=== PATIENT | female | born 1975 | race Hispanic/Latino ===

== ENCOUNTER 2016-07-30 11:50 | Observation (INO) | payer OTHER, MEDICAID ==
[2016-07-30] MEDS ORDERED: Sodium Chloride 0.9% 1,000 ML IV STA ×2 (12:48→15:21)
--- NOTE | 2016-07-30 12:55 | ED PDOC ---
HPI: General Adult <William Bradshaw III - Last Filed: 07/30/16 16:48> Chief Complaint (Provider): Rib Injury History Per: Patient History/Exam Limitations: no limitations Onset/Duration Of Symptoms: Days (yesterday at 21:30) Have you had recent travel within the past 21 days to any of the following countries: [place], [place], [place] or [place]?: No Current Symptoms Are (Timing): Still Present Severity: Moderate <Vaughn Kinney - Last Filed: 07/30/16 17:10> Time Seen by Provider: 07/30/16 12:10 Chief Complaint (Nursing): Rib Injury Additional Complaint(s): Marcie Quintero is a 40 year old female, with no pertinent past medical history, who presents to the emergency department for the evaluation of a rib injury, that the patient experienced on 07/29/2016 at 21:30. Patient states she was walking down a staircase before tripping and falling down approximately five steps. She landed on her left side and is currently complaining of abdominal and chest pain that worsens with movement, laughing, and deep inspiration. Further reports striking her head against the ground; however, she did not lose consciousness or sustain any injuries. Associated non-bloody vomiting occurred this morning when abdominal pain was at its worst. Denies a headache, fever, hematuria, diarrhea, melena, hematochezia, or hematemesis. Of note, the patient took Ibuprofen; however, it provided no relief, prompting her visit to the emergency department. Patient also denies any previous abdominal surgeries. PMD: Sam Delatorre (Vaughn Kinney) Past Medical History <William Bradshaw III - Last Filed: 07/30/16 16:48> Reviewed: Historical Data, Nursing Documentation, Vital Signs - Medical History PMH: No Chronic Diseases - Surgical History Surgical History: No Surg Hx - Family History Family History: States: Unknown Family Hx - Social History Current smoker - smoking cessation education provided: Yes (<10 cigarettes daily ) Alcohol: Occasional Drugs: Denies <Vaughn Kinney - Last Filed: 07/30/16 17:10> Vital Signs: Last Vital Signs Temp 97.9 F 07/30/16 17:00 Pulse 86 07/30/16 17:00 Resp 20 07/30/16 17:00 BP 134/95 H 07/30/16 17:00 Pulse Ox 100 07/30/16 17:00 - Home Medications Home Medications: Ambulatory Orders Medication Instructions Recorded No Known Home Med 07/30/16 - Allergies Allergies/Adverse Reactions: Allergies Allergy/AdvReac Type Severity Reaction Status Date / Time No Known Allergies Allergy Verified 12/13/14 12:19 Review of Systems ROS Statement: Except As Marked, All Systems Reviewed And Found Negative Constitutional: Negative for: Fever Cardiovascular: Positive for: Chest Pain Gastrointestinal: Positive for: Vomiting (non-bloody), Abdominal Pain. Negative for: Diarrhea, Melena, Hematochezia, Hematemesis Genitourinary Female: Negative for: Hematuria Musculoskeletal: Positive for: Neck Pain Neurological: Negative for: Headache, Other (loss of consciousness) <Vaughn Kinney - Last Filed: 07/30/16 17:10> Physical Exam - Reviewed Nursing Documentation Reviewed: Yes Vital Signs Reviewed: Yes - Physical Exam Appears: Positive for: Non-toxic, No Acute Distress (moderate painful distress) Head Exam: Positive for: ATRAUMATIC, NORMAL INSPECTION, NORMOCEPHALIC Skin: Positive for: Normal Color, Warm, Dry Eye Exam: Positive for: EOMI, Normal appearance, PERRL ENT: Positive for: Normal ENT Inspection. Negative for: Pharyngeal Erythema, Tonsillar Exudate, Tonsillar Swelling Neck: Positive for: Normal, Painless ROM, Supple Cardiovascular/Chest: Positive for: Regular Rate, Rhythm. Negative for: Chest Non Tender (chest tenderness, left lateral axillary chest wall), Murmur Respiratory: Positive for: Normal Breath Sounds. Negative for: Respiratory Distress Gastrointestinal/Abdominal: Positive for: Normal Exam, Soft, Tenderness ( moderate left lower quadrant tenderness w/ ecchymosis) Back: Positive for: Normal Inspection, L CVA Tenderness. Negative for: R CVA Tenderness, Vertebral Tenderness, Other (cervical tenderness) Extremity: Positive for: Normal ROM. Negative for: Tenderness Neurologic/Psych: Positive for: Alert, Oriented <Vaughn Kinney - Last Filed: 07/30/16 17:10> - Laboratory Results Result Diagrams: 07/30/16 13:14 07/30/16 13:14 - Critical Care Total Time (In Min): 45 <William Bradshaw III - Last Filed: 07/30/16 16:48> - Laboratory Results Result Diagrams: 07/30/16 13:14 07/30/16 13:14 - ECG ECG: Positive for: Interpreted By Me ECG Rhythm: Positive for: Sinus Rhythm. Negative for: ST/T Changes Rate: 98 O2 Sat by Pulse Oximetry: 99 (RA) Pulse Ox Interpretation: Normal - Radiology X-Ray: Interpreted by Me (CXR) X-Ray Interpretation: No Acute Disease <Vaughn Kinney - Last Filed: 07/30/16 17:10> - Critical Care Comments: pt required sustained bedside attention due to hemoperitoneum and need for frequent re-evaluations given life threatening injury (William Bradshaw III) Medical Decision Making <William Bradshaw III - Last Filed: 07/30/16 16:48> <Vaughn Kinney - Last Filed: 07/30/16 17:10> Medical Decision Makin:10 Initial Impression: s/p fall Initial Plan: * CXR * CBC * CMP * PT/INR * PTT * Type and Screen * UA * NPO Diet * Morphine 4 mg IVP * Sodium Chloride 0.9% 1,000 ml IV at 1,000 mls/hr * Zofran INJ 4 mg IVP * Reevaluation * Ed Obs Patient will be placed within ED Observation secondary to time-extensive ED workup. Pending imaging studies. See Obs note for further updates. Scribe Attestation: Documented by Carlitos Reece, acting as a scribe for RICKY Borrero. Provider Scribe Attestation: All medical record entries made by the Scribe were at my direction and personally dictated by me. I have reviewed the chart and agree that the record accurately reflects my personal performance of the history, physical exam, medical decision making, and the department course for this patient. I have also personally directed, reviewed, and agree with the discharge instructions and disposition. (Vaughn Kinney) ED OBSERVATION <William Bradshaw III - Last Filed: 07/30/16 16:48> Date of observation admission: 07/30/16 Time of observation admission: 12:15 <Vaughn Kinney - Last Filed: 07/30/16 17:10> - Observation admission statement Patient is being placed in observation because:: Time-extensive ED workup. Pending imaging studies. (Vaughn Kinney) - Progress Note Progress Note: 07/30/16 16:48 Attending note Pt seen/ examined agree with PA assessment and initial plan. CT result d/w radiologist revealing splenic laceration with hemoperitoneum. Vitals stable, hgb 13.1. Lactate 1.6 D/w in house surgeon drill press operator numerical control Dr Osuna, recommends transfer to trauma center as [facility] unable to adequately handle splenic lac w hemoperitoneum. Trauma paged 325pm x2, return call approx 350p, D/w Dr Norman trauma surgeon well service floorperson at [facility], accepts transfer. Dr Sky in ED also aware. Pt informed of results and need for transfer, she consented after risks/ benefits explained. (William Bradshaw III) 07/30/16 14:55 Pt. reports pain initially resolved but upon returning from CT and CXR pain has returned. Morphine 4mg IV given. 07/30/16 15:15 CT abd/pelvis/chest: IMPRESSION: Splenic laceration with blood the in the abdomen and pelvis. No adjacent osseous abnormalities. No evidence of rib fracture. No evidence of pneumothorax or significant intrathoracic abnormality. No intra-abdominal or pelvic visceral abnormalities. Pt. evaluated by Dr. Bradshaw in ED. Pt. placed on monitor. Will arrange transfer. (Vaughn Kinney) Disposition <William Bradshaw III - Last Filed: 07/30/16 16:48> - Patient ED Disposition Is Patient to be Admitted: Transfer of Care (Dr. Norman) - Disposition Disposition: Other Institution ([facility]) Disposition Time: 17:10 <Vaughn Kinney - Last Filed: 07/30/16 17:10> - Clinical Impression Clinical Impression: Spleen laceration - Disposition Condition: STABLE
[2016-07-30] MEDS ORDERED: Iohexol 300 100 ML IJ ONE (13:19)
[2016-07-30] MEDS ORDERED: Sodium Chloride 0.9% 50 ML IV ONE (13:19)
[2016-07-30 13:27] LABS: BASO % 0.2 % (0.0-2.0); EOS % 0.2 % (0.0-4.0); LYMPH # 1.9 K/uL (1.0-4.3); LYMPH % 11.5 % (20.0-40.0); MEAN CELL VOLUME 89.5 fl (81.0-99.0); MEAN CORPUSCULAR HGB CONC 33.6 g/dL (33.0-37.0); MONO # 0.9 K/uL (0.0-0.8); MONO % 5.5 % (0.0-10.0); NEUT % 82.6 % (50.0-75.0); RED CELL DISTRIBUTION WIDTH 13.2 % (11.5-14.5); WHITE BLOOD COUNT 16.9 K/uL (4.8-10.8)
[2016-07-30 13:30] LABS: ALB/GLOB RATIO 1.2 (1.0-2.1); ALKALINE PHOSPHATASE 90 U/L (38-126); ALT/SGPT 52 U/L (9-52); AST/SGOT 42 U/L (14-36); BILIRUBIN,TOTAL 0.7 mg/dl (0.2-1.3); BLOOD UREA NITROGEN 7 mg/dl (7-17); CALCIUM 8.6 mg/dL (8.4-10.2); CARBON DIOXIDE 25 mmol/L (22-30); CHLORIDE 102 mmol/L (98-107); GFR AFRICAN-AMERICAN > 60; GLUCOSE,RANDOM 127 mg/dL (65-105); POTASSIUM 4.3 MMOL/L (3.6-5.0); SODIUM 142 mmol/l (132-148); TOTAL PROTEIN 7.1 G/DL (6.3-8.2)
[2016-07-30 13:33] LABS: RBC URINE 5 /hpf (0-3); URINE BACTERIA RARE (<OCC); URINE BILIRUBIN NEGATIVE (NEGATIVE); URINE BLOOD NEGATIVE (NEGATIVE); URINE COLOR AMBER (YELLOW); URINE GLUCOSE (UA) 50 mg/dL (Normal); URINE KETONE NEGATIVE (NEGATIVE); URINE LEUKOCYTE ESTERASE NEG Leu/uL (Negative); URINE PROTEIN 100 mg/dL (NEGATIVE); URINE UROBILINOGEN 0.2-1.0 mg/dL (0.2-1.0); WBC URINE 12 /hpf (0-5)
[2016-07-30 14:41] LABS: PARTIAL THROMBOPLASTIN TIME 42.5 SECONDS (23.3-32.5)
--- NOTE | 2016-07-30 15:12 | RAD ---
HISTORY: trauma COMPARISON: No prior. TECHNIQUE: Chest PA and lateral FINDINGS: LUNGS: The lungs are well inflated and clear. PLEURA: No significant pleural effusion identified. No pneumothorax apparent. CARDIOVASCULAR: Normal. OSSEOUS STRUCTURES: No significant abnormalities. VISUALIZED UPPER ABDOMEN: Normal. OTHER FINDINGS: None. IMPRESSION: No acute findings.
--- NOTE | 2016-07-30 15:22 | CT ---
PROCEDURE: CT Chest, Abdomen and Pelvis with intravenous contrast HISTORY: trauma COMPARISON: 11/16/2013 CT abdomen and pelvis. TECHNIQUE: IV dose administered: 95 cc Omnipaque 300. Radiation dose: Total exam DLP = 1439.23 mGy-cm. This CT exam was performed using one or more of the following dose reduction techniques: Automated exposure control, adjustment of the mA and/or kV according to patient size, and/or use of iterative reconstruction technique. FINDINGS: CT CHEST WITH CONTRAST: LUNGS: Clear. No nodule, mass or consolidation. MEDIASTINUM: Unremarkable. Normal caliber aorta and pulmonary arterial trunk. No aortic dissection. Normal size heart. LYMPH NODES: Unremarkable. PLEURA: Unremarkable. No pneumothorax. No pleural fluid. BONES: Unremarkable. No evidence of displaced rib fracture. OTHER FINDINGS: Subcutaneous can well-circumscribed soft tissue mass at the level of the left scapula measuring 17 mm and likely benign etiology, sebaceous cysts. Stable moderate hiatus hernia. CT ABDOMEN AND PELVIS: LIVER: Unremarkable. No gross lesion or ductal dilatation. GALLBLADDER AND BILE DUCTS: Unremarkable. PANCREAS: Unremarkable. No gross lesion or ductal dilatation. SPLEEN: Splenic laceration. Free fluid/ blood identified left upper quadrant, tracking along both pericolic gutters into the pelvis. No adjacent visceral abnormalities. Stomach, pancreas,, left kidney are unremarkable. ADRENALS: Unremarkable. No mass. KIDNEYS AND URETERS: Unremarkable. No hydronephrosis. No solid mass. VASCULATURE: Unremarkable. No aortic aneurysm. BOWEL: Unremarkable. No obstruction. No gross mural thickening. APPENDIX: Normal appendix. PERITONEUM: Unremarkable. No free fluid. No free air. LYMPH NODES: Unremarkable. No enlarged lymph nodes. BLADDER: Unremarkable. REPRODUCTIVE: Unremarkable. BONES: No acute fracture. OTHER FINDINGS: IMPRESSION: Splenic laceration with blood the in the abdomen and pelvis. No adjacent osseous abnormalities. No evidence of rib fracture. No evidence of pneumothorax or significant intrathoracic abnormality. No intra-abdominal or pelvic visceral abnormalities. Critical results protocol: I discussed the findings directly with Dr. Bradshaw at 15:04. July 30, 2016.
[2016-07-30 15:58] LABS: VENOUS BLOOD GAS BASE EXCESS 2.6 mmol/L (0.0-2.0); VENOUS BLOOD GAS PCO2 55 mmHg (40-60); VENOUS BLOOD PH 7.34 (7.32-7.43)
[2016-07-30 17:01] VITALS: TEMP 97.9
[2016-07-30 17:18] VITALS: RESP 18; O2SAT 100
[2016-07-30 18:02] VITALS: PULSE 78
[2016-07-30 20:18] VITALS: BP 157/98
== END 2016-07-30 18:50 | disposition short-term general hospital (02) ==
LOC: H.ER 11:50 → H.EROBSV 12:47
PROVIDERS: ADMIT Emergency Medicine; ATTEND Emergency Medicine
DX: S36.039A Unspecified laceration of spleen, initial encounter (principal); W10.8XXA Fall (on) (from) other stairs and steps, initial encounter; Y92.9 Unspecified place or not applicable; F17.210 Nicotine dependence, cigarettes, uncomplicated

== ENCOUNTER 2017-02-15 14:23 | Emergency (ER) | payer MEDICAID ==
[2017-02-15 14:34] VITALS: BP 163/92; PULSE 84; RESP 18; TEMP 97; O2SAT 99
[2017-02-15] MEDS ORDERED: Tmp-Smz 800 mg-160 mg DS Tab PO STA (15:21)
[2017-02-15] MEDS ORDERED: Naproxen 500 MG TAB PO STA (15:21)
[2017-02-15] MEDS ORDERED: Tmp-Smz 800 mg-160 mg DS Tab ONE (15:39)
[2017-02-15] MEDS ORDERED: Naproxen 500 MG TAB PO ONE (15:39)
--- NOTE | 2017-02-15 15:46 | ED PDOC ---
HPI: Skin/Bite Injury Time Seen by Provider: 02/15/17 14:47 Chief Complaint (Nursing): Abnormal Skin Integrity Chief Complaint (Provider): Abnormal Skin Integrity History Per: Patient History/Exam Limitations: no limitations Onset/Duration Of Symptoms: Days (yesterday) Current Symptoms Are (Timing): Still Present Location Of Injury: Right: Thigh Quality Of Symptoms: Painful, Swollen Additional Complaint(s): Patient is a 41 y/o female with no past medical history who presents to the ED complaining of a painful pimple on her right inner thigh that she noticed yesterday. Patient reports the pimple got larger and more painful today, but denies any drainage. PCP: Stephen Whatley Past Medical History Reviewed: Historical Data, Nursing Documentation, Vital Signs Vital Signs: Last Vital Signs Temp 97 F L 02/15/17 14:32 Pulse 84 02/15/17 14:32 Resp 18 02/15/17 14:32 BP 163/92 H 02/15/17 14:32 Pulse Ox 99 02/15/17 14:32 - Medical History PMH: No Chronic Diseases - Surgical History Surgical History: No Surg Hx - Family History Family History: States: No Known Family Hx, Unknown Family Hx - Social History Current smoker - smoking cessation education provided: No Alcohol: None Drugs: Denies - Home Medications Home Medications: Ambulatory Orders Medication Instructions Recorded Naproxen [Naprosyn] 500 mg PO BID PRN #15 tablet 02/15/17 Sulfamethoxazole/Trimethoprim 1 tab PO BID #14 tab 02/15/17 [Bactrim DS 800 mg-160 mg] - Allergies Allergies/Adverse Reactions: Allergies Allergy/AdvReac Type Severity Reaction Status Date / Time No Known Allergies Allergy Verified 12/13/14 12:19 Review of Systems ROS Statement: Except As Marked, All Systems Reviewed And Found Negative Skin: Positive for: Lesions (Pimple on right inner thigh, painful, no drainage) Physical Exam - Reviewed Nursing Documentation Reviewed: Yes Vital Signs Reviewed: Yes - Physical Exam Appears: Positive for: No Acute Distress Head Exam: Positive for: ATRAUMATIC, NORMOCEPHALIC Skin: Positive for: Warm, Dry Eye Exam: Positive for: Normal appearance, EOMI, PERRL Neck: Positive for: Normal, Painless ROM, Supple Cardiovascular/Chest: Positive for: Regular Rate, Rhythm. Negative for: Murmur Respiratory: Positive for: Normal Breath Sounds. Negative for: Respiratory Distress Gastrointestinal/Abdominal: Positive for: Normal Exam, Soft. Negative for: Tenderness Back: Positive for: Normal Inspection. Negative for: L CVA Tenderness, R CVA Tenderness, Vertebral Tenderness Extremity: Positive for: Normal ROM, Other (2cm induration on right medial thigh , positive tenderness to palpation, no fluctuance, no drainage, no varicose). Negative for: Pedal Edema Neurologic/Psych: Positive for: Alert, Oriented (x3). Negative for: Motor/ Sensory Deficits - ECG O2 Sat by Pulse Oximetry: 99 (RA) Pulse Ox Interpretation: Normal Medical Decision Making Medical Decision Making: Time: 1521 Initial Impression: Cellulitis Initial Plan: --ED Urine --Bactrim DS 1 tab PO --Naproxen 500mg PO Scribe Attestation: Documented by Flori Nuno, acting as a scribe for Ayana Serrano MD. Provider Scribe Attestation: All medical record entries made by the Scribe were at my direction and personally dictated by me. I have reviewed the chart and agree that the record accurately reflects my personal performance of the history, physical exam, medical decision making, and the department course for this patient. I have also personally directed, reviewed, and agree with the discharge instructions and disposition. Disposition - Clinical Impression Clinical Impression: Cellulitis - Disposition Referrals: Stephen Whatley MD [Staff Provider] - Condition: STABLE Prescriptions: Naproxen [Naprosyn] 500 mg PO BID PRN #15 tablet PRN Reason: Pain, Moderate (4-7) Sulfamethoxazole/Trimethoprim [Bactrim DS 800 mg-160 mg] 1 tab PO BID #14 tab Instructions: Cellulitis (ED) Forms: [employer] (Mongolian)
== END 2017-02-15 16:02 | disposition home or self-care (01) ==
LOC: H.ER 14:23
DX: L03.115 Cellulitis of right lower limb (principal)

== ENCOUNTER 2017-07-13 10:02 | Emergency (ER) | payer MEDICAID ==
[2017-07-13 10:13] VITALS: RESP 18; TEMP 97.5; O2SAT 98
[2017-07-13] MEDS ORDERED: Iohexol 240 (50 ml) PO ONE (10:51)
[2017-07-13] MEDS ORDERED: Iohexol 240 (50 ml) ONE (11:09)
[2017-07-13 11:12] LABS: BASO % 0.4 % (0.0-2.0); EOS % 0.4 % (0.0-4.0); LYMPH % 28.7 % (20.0-40.0); MEAN CELL VOLUME 84.9 fl (81.0-99.0); MEAN CORPUSCULAR HEMOGLOBIN 28.6 pg (27.0-31.0); MEAN CORPUSCULAR HGB CONC 33.7 g/dL (33.0-37.0); MEAN PLATELET VOLUME 7.6 fl (7.2-11.7); MONO # 0.4 K/uL (0.0-0.8); MONO % 6.1 % (0.0-10.0); NEUT # 4.4 K/uL (1.8-7.0); NEUT % 64.4 % (50.0-75.0); RBC 4.55 Mil/uL (3.80-5.20); RED CELL DISTRIBUTION WIDTH 13.9 % (11.5-14.5); WHITE BLOOD COUNT 6.8 K/uL (4.8-10.8)
[2017-07-13] MEDS ORDERED: Sodium Chloride 0.9% 1,000 ML IV STA (11:12)
--- NOTE | 2017-07-13 11:15 | ED PDOC ---
HPI: Abdomen Time Seen by Provider: 07/13/17 10:21 Chief Complaint (Nursing): Abdominal Pain Chief Complaint (Provider): abdominal pain History Per: Patient History/Exam Limitations: no limitations Onset/Duration Of Symptoms: Days (1) Current Symptoms Are (Timing): Still Present Location Of Pain/Discomfort: LUQ, LLQ Quality Of Discomfort: Sharp Associated Symptoms: Nausea, Loss Of Appetite, Back Pain. denies: Vomiting, Diarrhea Exacerbating Factors: None Alleviating Factors: None Last Bowel Movement: Today Additional Complaint(s): 41yo female c/o left sided abdominal pain onset yesterday associated with nausea , denies vomiting, states bowel movements normal without blood diarrhea or constipation. States told she has trichomoniasis by Dr Lamar in routine pap smear and started tindamax tuesday night now day 06/20. Denies vaginal bleeding or discharge , pelvic pain, fever, urinary complaints, weakness or trauma. 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 States due for US for fibroids as outpatient. Abnormal Vaginal Bleeding: No Past Medical History Vital Signs: Last Vital Signs Temp 97.5 F L 07/13/17 10:13 Pulse 85 07/13/17 10:13 Resp 18 07/13/17 10:13 BP 145/77 07/13/17 10:13 Pulse Ox 98 07/13/17 11:18 - Family History Family History: States: Unknown Family Hx - Home Medications Home Medications: Ambulatory Orders Medication Instructions Recorded Lansoprazole [Prevacid] 30 mg PO DAILY 07/13/17 Naproxen [Naprosyn] 500 mg PO BID PRN #14 tablet 07/13/17 Tinidazole [Tindamax] 500 mg PO QPM 07/13/17 - Allergies Allergies/Adverse Reactions: Allergies Allergy/AdvReac Type Severity Reaction Status Date / Time No Known Allergies Allergy Verified 07/13/17 10:20 Physical Exam - Reviewed Nursing Documentation Reviewed: Yes Vital Signs Reviewed: Yes - Physical Exam Appears: Positive for: Well, Non-toxic, No Acute Distress Head Exam: Positive for: ATRAUMATIC, NORMAL INSPECTION, NORMOCEPHALIC Skin: Positive for: Normal Color, Warm, DRY Eye Exam: Positive for: EOMI, Normal appearance, PERRL ENT: Positive for: Normal ENT Inspection Neck: Positive for: Normal, Painless ROM Cardiovascular/Chest: Positive for: Regular Rate, Rhythm Respiratory: Positive for: CNT, Normal Breath Sounds Gastrointestinal/Abdominal: Positive for: Bowel Sounds, Soft, Tenderness (LLQ). Negative for: Distended, Guarding, Rebound, Hernia, Asicites Back: Positive for: Normal Inspection Extremity: Positive for: Normal ROM Neurologic/Psych: Positive for: Alert, Oriented. Negative for: Motor/Sensory Deficits - Laboratory Results Result Diagrams: 07/13/17 11:01 07/13/17 11:01 - ECG O2 Sat by Pulse Oximetry: 98 Medical Decision Making Medical Decision Making: worukp for L sided abd pain initiated toradol ordered for pain, IVF bolus ordered labs, CT abd pelv r/o diverticulitis/perforation/malrotation/SBO/colitis or other acute abdominal process labs reviewed no clinically significant findings UA shows trace WBC but dirty catch with elev squamous epith cells Pt denies urinary symptoms CT abd pelv Accession No. : [id number] Patient Name / ID : JEREMIAS HAAS / [id number] Exam Date : 07/13/2017 13:12:52 ( Approved ) Study Comment : Sex / Age : F / 41Y Creator : Jonel Pillai MD Dictator : Jonel Pillai MD Floor Covering Printer Assistant : Etl [employer] Architect : Jonel Pillai MD Approver2 : Report Date : 07/13/2017 13:45:58 My Comment : PROCEDURE: CT Abdomen and Pelvis with contrast HISTORY: LLQ abdominal pain COMPARISON: None. TECHNIQUE: Contrast dose: 90 mL Omnipaque 300 Radiation dose: Total exam DLP = 1113.94 mGy-cm. This CT exam was performed using one or more of the following dose reduction techniques: Automated exposure control, adjustment of the mA and/or kV according to patient size, and/or use of iterative reconstruction technique. FINDINGS: LOWER THORAX: Moderate hiatal hernia. LIVER: Unremarkable. No gross lesion or ductal dilatation. GALLBLADDER AND BILE DUCTS: Unremarkable. PANCREAS: Unremarkable. No gross lesion or ductal dilatation. SPLEEN: Unremarkable. ADRENALS: Unremarkable. No mass. KIDNEYS AND URETERS: Unremarkable. No hydronephrosis. No solid mass. VASCULATURE: Unremarkable. No aortic aneurysm. BOWEL: No bowel obstruction. No mural thickening. Note is made of focal mesenteric edema in the right lower abdomen/ pelvis, best demonstrated on series 601, image 45 through 50 and series 3, image 133. There is no mural thickening and adjacent bowel loops to suggest an inflammatory or infectious process or ischemic enteritis. . APPENDIX: Normal appendix. PERITONEUM: Unremarkable. No free fluid. No free air. LYMPH NODES: Unremarkable. No enlarged lymph nodes. BLADDER: Suboptimally distended. Grossly unremarkable. REPRODUCTIVE: Normal uterus. BONES: No acute fracture. OTHER FINDINGS: None. IMPRESSION: No evidence of diverticulitis or other inflammatory process. There is incidental note made of focal mesenteric edema in the small bowel mesenteric in the right lower abdomen/ right hemipelvis without abnormal adjacent bowel loops. Significance unclear. Moderate hiatal hernia. No additional abnormality. Dr Lamar informed of visit Dr Mackey GI fellow working w Dr Lu contacted and case discussed. Imaging results are likely incidental finding and can be followed up as outpatient. Patient improved but remains w some symptoms of left abdominal crampy discomfort. I explained possible causes, from benign to more serious and she was offered and recommended for observation in hospital but declined. Wishes to be discharged to followup w GI as outpatient. Explained delay in care could cause adverse outcome but she is persistent on discharge and followup. Understands indications for return. Ambulating without difficulty, vitals stable. Disposition - Clinical Impression Clinical Impression: Abdominal pain - Patient ED Disposition Is Patient to be Admitted: No Counseled Patient/Family Regarding: Studies Performed, Diagnosis, Need For Followup, Rx Given - Disposition Referrals: Liana Lu MD [Medical Doctor] - Richard Ramires MD [Staff Provider] - Disposition: Routine/Home Disposition Time: 14:50 Condition: STABLE Additional Instructions: Return to ER for any worse or new symptoms. Take medications as directed. Prescriptions: Naproxen [Naprosyn] 500 mg PO BID PRN #14 tablet PRN Reason: Pain, Moderate (4-7) Instructions: Acute Abdomen (Belly Pain), Adult (DC) Forms: [employer] (German), [facility] ED School/Work Excuse
[2017-07-13 11:29] LABS: ALB/GLOB RATIO 1.2 (1.0-2.1); ALBUMIN 3.7 g/dL (3.5-5.0); ALT/SGPT 31 U/L (9-52); AST/SGOT 24 U/L (14-36); BLOOD UREA NITROGEN 10 mg/dl (7-17); GFR AFRICAN-AMERICAN > 60; GFR NON-AFRICAN AMERICAN > 60; LIPASE 134 U/L (23-300)
[2017-07-13 11:31] LABS: SQUAMOUS EPITHIAL 11 /hpf (0-5); URINE BACTERIA RARE (<OCC); URINE BILIRUBIN NEGATIVE (NEGATIVE); URINE BLOOD NEGATIVE (NEGATIVE); URINE CLARITY CLOUDY (Clear); URINE COLOR YELLOW (YELLOW); URINE GLUCOSE (UA) NEG (Normal); URINE LEUKOCYTE ESTERASE MOD Leu/uL (Negative); URINE PROTEIN NEGATIVE (NEGATIVE); URINE UROBILINOGEN 0.2-1.0 mg/dL (0.2-1.0)
[2017-07-13] MEDS ORDERED: Iohexol 300 100 ML IJ ONE (12:54)
[2017-07-13] MEDS ORDERED: Sodium Chloride 0.9% 100 ML ONE (12:54)
--- NOTE | 2017-07-13 13:48 | CT ---
PROCEDURE: CT Abdomen and Pelvis with contrast HISTORY: LLQ abdominal pain COMPARISON: None. TECHNIQUE: Contrast dose: 90 mL Omnipaque 300 Radiation dose: Total exam DLP = 1113.94 mGy-cm. This CT exam was performed using one or more of the following dose reduction techniques: Automated exposure control, adjustment of the mA and/or kV according to patient size, and/or use of iterative reconstruction technique. FINDINGS: LOWER THORAX: Moderate hiatal hernia. LIVER: Unremarkable. No gross lesion or ductal dilatation. GALLBLADDER AND BILE DUCTS: Unremarkable. PANCREAS: Unremarkable. No gross lesion or ductal dilatation. SPLEEN: Unremarkable. ADRENALS: Unremarkable. No mass. KIDNEYS AND URETERS: Unremarkable. No hydronephrosis. No solid mass. VASCULATURE: Unremarkable. No aortic aneurysm. BOWEL: No bowel obstruction. No mural thickening. Note is made of focal mesenteric edema in the right lower abdomen/ pelvis, best demonstrated on series 601, image 45 through 50 and series 3, image 133. There is no mural thickening and adjacent bowel loops to suggest an inflammatory or infectious process or ischemic enteritis. . APPENDIX: Normal appendix. PERITONEUM: Unremarkable. No free fluid. No free air. LYMPH NODES: Unremarkable. No enlarged lymph nodes. BLADDER: Suboptimally distended. Grossly unremarkable. REPRODUCTIVE: Normal uterus. BONES: No acute fracture. OTHER FINDINGS: None. IMPRESSION: No evidence of diverticulitis or other inflammatory process. There is incidental note made of focal mesenteric edema in the small bowel mesenteric in the right lower abdomen/ right hemipelvis without abnormal adjacent bowel loops. Significance unclear. Moderate hiatal hernia. No additional abnormality.
[2017-07-14 11:09] VITALS: BP 155/96; PULSE 75
== END 2017-07-13 15:34 | disposition home or self-care (01) ==
LOC: H.ER 10:02
DX: R10.12 Left upper quadrant pain (principal); K44.9 Diaphragmatic hernia without obstruction or gangrene
CPT/HCPCS: 74177; 80053; 81003; 81025; 83690; 85025; 96361; 96374; 99284; J1885; J7040; Q9966; Q9967

== ENCOUNTER 2018-05-03 12:20 | Emergency (ER) | payer BC, MEDICAID ==
[2018-05-03 12:20] VITALS: BMI 34.4
[2018-05-03] MEDS ORDERED: Sodium Chloride 0.9% 1,000 ML IV STA (13:37)
--- NOTE | 2018-05-03 14:02 | ED PDOC ---
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 Patient does state she has nausea but denies any vomiting, diarrhea, fever or urinary symptoms. PMD: Phylicia Mares Past Medical History Reviewed: Historical Data, Nursing Documentation, Vital Signs Vital Signs: Last Vital Signs Temp 97.7 F 05/03/18 13:06 Pulse 99 H 05/03/18 13:06 Resp 18 05/03/18 13:06 BP 160/101 H 05/03/18 13:06 Pulse Ox 100 05/03/18 13:06 - Medical History PMH: Anxiety, Gastritis Denies: Chronic Kidney Disease - Surgical History Surgical History: No Surg Hx - Family History Family History: States: Unknown Family Hx - Home Medications Home Medications: Ambulatory Orders Medication Instructions Recorded Lansoprazole [Prevacid] 30 mg PO DAILY 07/13/17 Acetaminophen [Tylenol 325mg tab] 325 mg PO Q6 07/28/17 Multivitamin with Minerals [Hair, 1 each PO DAILY 07/28/17 Skin & Nails] Famotidine [Pepcid] 20 mg PO Q12 #20 tab 05/03/18 - Allergies Allergies/Adverse Reactions: Allergies Allergy/AdvReac Type Severity Reaction Status Date / Time No Known Allergies Allergy Verified 07/27/17 14:25 Review of Systems ROS Statement: Except As Marked, All Systems Reviewed And Found Negative Constitutional: Negative for: Fever Gastrointestinal: Positive for: Nausea, Abdominal Pain. Negative for: Vomiting, Diarrhea Genitourinary Female: Negative for: Dysuria, Frequency, Incontinence, Hematuria, Vaginal Discharge, Vaginal Bleeding Physical Exam - Reviewed Nursing Documentation Reviewed: Yes Vital Signs Reviewed: Yes - Physical Exam Appears: Positive for: Non-toxic, No Acute Distress Head Exam: Positive for: ATRAUMATIC, NORMOCEPHALIC Skin: Positive for: Normal Color, Warm, Dry Eye Exam: Positive for: Normal appearance, EOMI, PERRL Neck: Positive for: Normal, Painless ROM, Supple Cardiovascular/Chest: Positive for: Regular Rate, Rhythm. Negative for: Murmur Respiratory: Positive for: Normal Breath Sounds. Negative for: Respiratory Distress Gastrointestinal/Abdominal: Positive for: Soft, Tenderness (epigastric area). Negative for: Guarding, Rebound Extremity: Positive for: Normal ROM. Negative for: Pedal Edema, Deformity Neurologic/Psych: Positive for: Alert, Oriented. Negative for: Motor/Sensory Deficits - Laboratory Results Result Diagrams: 05/03/18 14:40 05/03/18 14:40 - ECG O2 Sat by Pulse Oximetry: 100 (RA) Pulse Ox Interpretation: Normal Medical Decision Making Medical Decision Making: Time: 1337 Impression: Consider gastritis vs. peptic ulcer disease Plan: --Cmp --Lipase --Ed urine --Ed urine dipstick --Cbc with differential --Bentyl 10 mg PO --Pepcid 20 mg IVP --Sodium chloride 1,000 ml Scribe Attestation: Documented by Tony Frederick, acting as a scribe for Richard Silva MD. Abd pain improved. No vomiting Abd nontender. CBC, CMP nl. Will DC home on Pepcid as viral gastritis Provider Scribe Attestation: All medical record entries made by the Scribe were at my direction and persona lly dictated by me. I have reviewed the chart and agree that the record accurately reflects my personal performance of the history, physical exam, medical decision making, and the department course for this patient. I have also personally directed, reviewed, and agree with the discharge instructions and disposition. Disposition - Clinical Impression Clinical Impression: Gastritis - Patient ED Disposition Is Patient to be Admitted: No Counseled Patient/Family Regarding: Studies Performed, Diagnosis, Need For Followup, Rx Given - Disposition Referrals: [facility] [Outside] Disposition: Routine/Home Disposition Time: 15:35 Condition: FAIR Prescriptions: Famotidine [Pepcid] 20 mg PO Q12 #20 tab Instructions: Gastritis Forms: [facility] (Z[place]ian)
[2018-05-03 14:45] LABS: BASO % 0.2 % (0.0-2.0); EOS # 0.1 K/uL (0.0-0.7); EOS % 0.5 % (0.0-4.0); HEMOGLOBIN 13.6 g/dL (12.0-16.0); LYMPH # 0.9 K/uL (1.0-4.3); LYMPH % 9.3 % (20.0-40.0); MEAN CELL VOLUME 81.6 fl (81.0-99.0); MEAN CORPUSCULAR HEMOGLOBIN 26.5 pg (27.0-31.0); MEAN CORPUSCULAR HGB CONC 32.5 g/dL (33.0-37.0); MEAN PLATELET VOLUME 7.8 fl (7.2-11.7); MONO # 0.4 K/uL (0.0-0.8); MONO % 3.8 % (0.0-10.0); NEUT # 8.2 K/uL (1.8-7.0); NEUT % 86.2 % (50.0-75.0); NRBC % 0.1 % (0.0-0.0); PLATELET COUNT 264 K/uL (130-400); RBC 5.12 Mil/uL (3.80-5.20); RED CELL DISTRIBUTION WIDTH 15.9 % (11.5-14.5); WHITE BLOOD COUNT 9.5 K/uL (4.8-10.8)
[2018-05-03 14:57] LABS: ALB/GLOB RATIO 1.3 (1.0-2.1); ALBUMIN 4.1 g/dL (3.5-5.0); ALT/SGPT 30 U/L (9-52); AST/SGOT 21 U/L (14-36); BLOOD UREA NITROGEN 12 mg/dl (7-17); CALCIUM 8.9 mg/dL (8.4-10.2); GFR NON-AFRICAN AMERICAN > 60; LIPASE 115 U/L (23-300)
[2018-05-03 15:19] LABS: ANISOCYTOSIS SLIGHT; EOSINOPHIL 1 % (0-7); LYMPHOCYTE 11 % (20-50); MONOCYTE 3 % (0-10); NEUTROPHIL 85 % (42-75); PLATELET ESTIMATE NORMAL (NORMAL); TOTAL CELLS COUNTED 100
[2018-05-03 16:18] VITALS: BP 110/70; PULSE 74; RESP 20; TEMP 98.5; O2SAT 98
== END 2018-05-03 16:00 | disposition home or self-care (01) ==
LOC: H.ER 12:20
DX: K29.70 Gastritis, unspecified, without bleeding (principal)
CPT/HCPCS: 80053; 83690; 85025; 96374; 99284; J7030

== ENCOUNTER 2018-05-22 08:37 | Emergency (ER) | payer BC, MEDICAID ==
[2018-05-22 08:38] VITALS: BMI 34.4
--- NOTE | 2018-05-22 09:59 | ED PDOC ---
Upper Extremity Pain/Injury Time Seen by Provider: 05/22/18 09:10 Chief Complaint (Nursing): Upper Extremity Problem/Injury History Per: Patient History/Exam Limitations: no limitations Onset/Duration Of Symptoms: Hrs Current Symptoms Are (Timing): Still Present Quality: Aching Additional Complaint(s): 42 yo F with no known PMHx presents to the ED with right arm/shoulder pain. Pt states she was walking out of her apt building when she slipped falling onto her right arm. Pain is worse to upper arm and worse with attempted movement. Pt denies hitting her head, dizziness before/after fall, or other injury. Past Medical History Vital Signs: Last Vital Signs Temp 98.2 F 05/22/18 08:55 Pulse 87 05/22/18 08:55 Resp 17 05/22/18 08:55 BP 152/108 H 05/22/18 08:55 Pulse Ox 97 05/22/18 08:55 - Medical History PMH: Anxiety, Gastritis Denies: Chronic Kidney Disease - Family History Family History: States: Unknown Family Hx - Home Medications Home Medications: Ambulatory Orders Medication Instructions Recorded Lansoprazole [Prevacid] 30 mg PO DAILY 07/13/17 Acetaminophen [Tylenol 325mg tab] 325 mg PO Q6 07/28/17 Multivitamin with Minerals [Hair, 1 each PO DAILY 07/28/17 Skin & Nails] Famotidine [Pepcid] 20 mg PO Q12 #20 tab 05/03/18 Acetaminophen with Codeine 1 each PO Q6 #10 tablet 05/22/18 [Tylenol with Codeine #3 Tablet] Ibuprofen [Motrin Tab] 800 mg PO Q6 #21 tab 05/22/18 oxyCODONE/Acetaminophen [Percocet 2 ea PO Q6 #32 tab 05/22/18 5/325 mg Tab] - Allergies Allergies/Adverse Reactions: Allergies Allergy/AdvReac Type Severity Reaction Status Date / Time No Known Allergies Allergy Verified 05/22/18 08:55 Review of Systems Constitutional: Negative for: Fever, Chills, Sweats Eyes: Negative for: Pain, Vision Change Cardiovascular: Negative for: Chest Pain, Palpitations Respiratory: Negative for: Cough, Shortness of Breath Gastrointestinal: Negative for: Nausea, Abdominal Pain Genitourinary Female: Negative for: Dysuria Musculoskeletal: Positive for: Arm Pain. Negative for: Neck Pain, Shoulder Pain, Back Pain Neurological: Negative for: Weakness, Numbness Physical Exam - Physical Exam Appears: Positive for: Well, Non-toxic Head Exam: Positive for: ATRAUMATIC, NORMAL INSPECTION, NORMOCEPHALIC Skin: Positive for: Normal Color, Warm, Dry Eye Exam: Positive for: Normal appearance Neck: Positive for: Normal Cardiovascular/Chest: Positive for: Regular Rate, Rhythm, Chest Non Tender Respiratory: Positive for: Normal Breath Sounds Gastrointestinal/Abdominal: Positive for: Normal Exam Extremity: Positive for: Other (TTP of proximal right humerus. NO TTP of scapula or clavicle. no swelling or echymosis.). Negative for: Normal ROM (decreased movement of right shoulder.), Swelling - ECG O2 Sat by Pulse Oximetry: 97 Medical Decision Making Medical Decision Making: Right arm/shoulder pain secondary to mechanical fall. Xrays and percocet for pain. Re-evaluate patient. Initial read of xrays showed no obvious deformity/fracture/disclocation. Pt with improved pain and range of motion. Pt states she is unable to take Motrin and discharge prescription was changed to Tylenol #3. Pt given discharge information, return parameters, and referral for orthopedic surgery. 1400 Right shoulder XR IMPRESSION: Nondisplaced fracture greater tuberosity right humeral head suspected. Consider follow-up CT or MRI for added characterization. XR Right Humerus IMPRESSION: Questionable nondisplaced fracture greater tuberosity right humeral head. Exam otherwise unremarkable. Consider follow-up CT or MRI for added characterization. XR Right elbow IMPRESSION: Unremarkable radiographs of the right elbow. Called patient and informed of official XR reads. Patient requesting referral to be emailed to her - does not want to come in. States tylenol #3 not helping w/ pain, attempted to send percocet electronically but unable to do so at this time. Patient instructed to follow up with orthopedist for further evaluation as was discussed initially and the referral given in the discharge paperwork. Patient advised to return to the emergency room for arm splint and paper prescription and states she will return in the next two hours. 1820 Pt returned and arm placed in sling. Again explained that the xray is inconclusive. Pt states that her insurance is not accepted by the referral doctor but she will call her insurance company tomorrow to find an orthopedic surgeon. Return parameters again discussed and prescription given. Disposition - Clinical Impression Clinical Impression: Arm pain, right - Disposition Referrals: Con Gan MD [Staff Provider] - Disposition: Routine/Home Disposition Time: 12:36 Condition: STABLE Additional Instructions: Follow up with primary medical doctor. Return to the emergency department if symptoms worsen or if new symptoms develop. Take Motrin as needed for pain. Prescriptions: Acetaminophen with Codeine [Tylenol with Codeine #3 Tablet] 1 each PO Q6 #10 tablet Ibuprofen [Motrin Tab] 800 mg PO Q6 #21 tab oxyCODONE/Acetaminophen [Percocet 5/325 mg Tab] 2 ea PO Q6 #32 tab Instructions: Muscle and Bone Pain (DC) Forms: [facility] ([place]an), [facility] ED School/Work Excuse Print Language: TURKISH
[2018-05-22] MEDS ORDERED: Oxycodone/Acetaminophen 5/325 mg Tab PO STA (10:45)
[2018-05-22 12:01] VITALS: BP 132/85; PULSE 81; RESP 18; TEMP 97.4
--- NOTE | 2018-05-22 12:44 | RAD ---
Date of service: 05/22/2018 PROCEDURE: Radiographs of the right elbow. HISTORY: pain to right arm s/p fall COMPARISON: No prior. FINDINGS: BONES: No acute fracture or destructive bony lesion identified. JOINTS: Normal. No osteoarthritis. SOFT TISSUES: Normal. JOINT EFFUSION: None. OTHER FINDINGS: None. IMPRESSION: Unremarkable radiographs of the right elbow.
--- NOTE | 2018-05-22 12:49 | RAD ---
PROCEDURE: Radiographs of the right humerus. HISTORY: pain after fall COMPARISON: None. FINDINGS: BONES: There is questionable cortical discontinuity at the greater tuberosity right humeral head suspicious for nondisplaced fracture. Remainder the humerus is intact without additional fracture or destructive bony lesion apparent. SOFT TISSUES: Normal. OTHER FINDINGS: None. IMPRESSION: Questionable nondisplaced fracture greater tuberosity right humeral head. Exam otherwise unremarkable. Consider follow-up CT or MRI for added characterization. PA review added.
--- NOTE | 2018-05-22 12:50 | RAD ---
Date of service: 05/22/2018 PROCEDURE: Radiographs of the Right Shoulder HISTORY: right arm pain after fall COMPARISON: No prior. FINDINGS: BONES: Nondisplaced fracture of the greater tuberosity right humeral head is suspected. Follow-up CT or MRI can confirm. Remainder of the right humerus is intact and otherwise unremarkable. JOINTS: Normal. Glenohumeral and acromioclavicular joints preserved. No osteoarthritis. SOFT TISSUES: Normal. OTHER FINDINGS: None. IMPRESSION: Nondisplaced fracture greater tuberosity right humeral head suspected. Consider follow-up CT or MRI for added characterization. PA review added.
[2018-05-22 14:54] VITALS: O2SAT 97
== END 2018-05-22 12:25 | disposition home or self-care (01) ==
LOC: H.ER 08:37
DX: S42.251A Displaced fracture of greater tuberosity of right humerus, initial encounter for closed fracture (principal); W19.XXXA Unspecified fall, initial encounter; Y92.89 Other specified places as the place of occurrence of the external cause